=== PATIENT | male | born 2005 | race American Indian/Alaskan Native ===

== ENCOUNTER 2025-03-16 05:37 | Emergency (ER) | payer OTHER, SELFPAY ==
[2025-03-16 06:08] LABS: #Basophils Less than 0.03 10x3/uL (0.0-0.2); #Eosinophils 0.09 10x3/uL (0.0-0.5); #Monocytes 0.40 10x3/uL (0.0-1.1); #Neutrophils 4.61 10x3/uL (1.5-8.4); %Basophils 0.3 % (0.0-2.0); %Eosinophils 1.3 % (0.0-6.0); %Lymphocytes 27.5 % (18.0-47.0); %Monocytes 5.6 % (0.0-10.0); %Neutrophils 65.0 % (40.0-75.0); Hematocrit 44.6 % (38.8-50.0); Hemoglobin 15.3 g/dL (13.5-17.5); Mean Corpuscular Hemoglobin 28.3 pg (27.0-33.0); Mean Corpuscular Volume 82.6 fL (81.2-95.1); Platelet Count 256 10x3/uL (150-450); Red Blood Cell (RBC) Count 5.40 10x6/uL (4.32-5.72); White Blood Cell (WBC) Count 7.09 10x3/uL (3.5-10.5)
[2025-03-16 06:20] LABS: Cocaine Metabolite Screen Negative (Negative); THC/Cannabinoid Screen PRELIM POSITIVE (Negative); Tricyclic Screen Negative (Negative)
[2025-03-16 06:30] LABS: Acetaminophen Less than 10 mcg/mL (Less than 10); Salicylate Less than 8.0 mg/dL (Less than 8.0)
[2025-03-16 06:32] LABS: ALT (SGPT) 12 U/L (Less than 45); AST (SGOT) 25 U/L (11-34); Albumin 4.8 g/dL (3.1-4.5); Alkaline Phosphatase 49 U/L (50-130); Anion Gap 18 mmol/L (10-20); BUN (Urea Nitrogen) 24 mg/dL (8.9-20.6); Bilirubin, Total 1.6 mg/dL (0.3-1.2); Calc. Creatinine Clearance 0 mL/min (70-130); Calcium 9.5 mg/dL (7.8-10.44); Carbon Dioxide 19 mmol/L (22-29); Chloride 105 mmol/L (98-107); Globulin 3.2 g/dL (2.4-3.5); Glucose 100 mg/dL (70-105); Potassium 4.1 mmol/L (3.5-5.1); Sodium 138 mmol/L (136-145)
[2025-03-16 06:45] LABS: Glucose, Urine (Dipstick) Normal (Negative); Leukocyte Negative (Negative); Protein, Urine (Dipstick) 100 mg/dl (Neg-Trace); Specific Gravity, Urine 1.030 (1.005-1.030)
[2025-03-16 06:54] LABS: Bacteria/HPF None Seen HPF (None Seen); CAUTI Indications for Culture Alt mental st,lethar; RBC/HPF 0-3 HPF (0-3); WBC/HPF None Seen HPF (0-3)
[2025-03-16 06:55] LABS: Urine Culture Reflex No No
== END 2025-03-16 12:50 | disposition home or self-care (01) ==
LOC: EEVIPCON 05:37 → CSHERS 05:37
DX: R45.851 Suicidal ideations (principal); F42.9 Obsessive-compulsive disorder, unspecified; Z79.899 Other long term (current) drug therapy
CPT/HCPCS: 80053; 80306; 80307; 81001; 84443; 85025; 99285